=== PATIENT | female | born 1955 | race Hispanic/Latino ===

== ENCOUNTER 2023-06-24 06:03 | Day surgery (SDC) | payer OTHER ==
[2023-06-22 13:08] VITALS: BP 159/74; PULSE 80; RESP 16
[2023-06-22 13:14] LABS: BASOPHILS # (AUTO) 0.04 K/uL (0.00-0.20); BASOPHILS % (AUTO) 0.6 % (0.0-5.0); EOSINOPHILS % (AUTO) 1.6 % (0.0-8.0); HEMATOCRIT 37.5 % (36-48); IMMATURE GRANULOCYTE ABSOLUTE 0.04 K/uL (0-1); LYMPHOCYTES # (AUTO) 1.5 K/uL (1.0-4.8); LYMPHOCYTES % (AUTO) 23.1 % (21.0-51.0); MEAN CORPUSCULAR HEMOGLOBIN 28.7 pg (27.0-33.0); MEAN CORPUSCULAR HGB CONC 34.1 g/dL (32.0-36.0); MEAN CORPUSCULAR VOLUME 84.1 fL (79-99); MONOCYTES # (AUTO) 0.4 K/uL (0.1-1.0); MONOCYTES % (AUTO) 6.4 % (3.0-13.0); NEUTROPHILS # (AUTO) 4.3 K/uL (1.8-7.7); NEUTROPHILS % (AUTO) 67.7 % (40.0-77.0); PLATELET COUNT (AUTO) 346 K/uL (130-400); RED BLOOD CELL COUNT(AUTO) 4.46 MIL/uL (4.00-5.50); RED CELL DISTRIBUTION WIDTH 12.3 % (11.0-15.5); WHITE BLOOD COUNT (AUTO) 6.4 K/uL (4.8-10.8)
[2023-06-22 13:25] LABS: CREATININE 0.7 mg/dL (0.5-1.5); INR < 0.93 (0.85-1.15); POTASSIUM 5.4 mmol/L (3.5-5.1)
[2023-06-22 13:27] LABS: PARTIAL THROMBOPLASTIN TIME 24.6 SEC (26.3-35.5)
[2023-06-24] VITALS (18 sets, daily range): BP systolic 118–160; BP diastolic 39–72; PULSE 66–78; RESP 11–18
[~2023-06-24] VITALS: Ht 158.8 cm; Wt 67.6 kg
[~2023-06-24 06:03] MED LIST: AEC81 PO; FLUT16H NASAL; HYDR-3421 PO; LORA10TA7 PO; LOSA25TA41 PO; METF-444 PO; MONT-39 PO
[2023-06-24] MEDS ORDERED: 0.9%NACL 1000ML 1,000 ML IV ONE (06:28)
[2023-06-24 06:50] LABS: CREATININE 0.7 mg/dL (0.5-1.5); POTASSIUM 4.1 mmol/L (3.5-5.1)
[2023-06-24] MEDS ORDERED: SUCCINYLCHOLINE CHLORIDE 20 MG/ML 10 ML VIAL ONE (07:54)
[2023-06-24] MEDS ORDERED: PROPOFOL 10 MG/ML 20ML VIAL IV ONE (07:55)
[2023-06-24] MEDS ORDERED: ROCURONIUM 10MG/1ML SYR 10 MG/ML ML ONE ×2 (07:55→08:25)
[2023-06-24] MEDS ORDERED: LIDOCAINE PF 100MG/5ML (2%) SYRINGE 5ML ONE (07:55)
[2023-06-24] MEDS ORDERED: FENTANYL CITRATE PF 50 MCG/1 ML 2ML VIAL ONE ×2 (07:57→08:48)
[2023-06-24] MEDS ORDERED: MIDAZOLAM HCL 1 MG/ML 2ML VIAL ONE (07:57)
[2023-06-24] MEDS ORDERED: DEXAMETHASONE SOD PHOSPHATE 10MG/ML 1ML VIAL ONE (09:08)
[2023-06-24] MEDS ORDERED: ONDANSETRON 4MG INJ ONE ×3 (09:09→09:52)
[2023-06-24] MEDS ORDERED: GLYCOPYRROLATE 1 MG/5 ML SYRINGE ONE (09:10)
[2023-06-24] MEDS ORDERED: NEOSTIGMINE 5MG/5ML SYR IV ONE (09:10)
[2023-06-24] MEDS ORDERED: MEPERIDINE-PF 25 MG/ML SYG ONE ×2 (09:32→09:43)
[2023-06-24] MEDS ORDERED: METOCLOPRAMIDE 10 MG/2 ML VIAL ONE (09:52)
== END 2023-06-24 10:50 | disposition home or self-care (01) ==
LOC: DAH 06:03
PROVIDERS: ATTEND Otolaryngology Plastic Surgery within the Head & Neck
DX: C09.9 Malignant neoplasm of tonsil, unspecified (principal); I10 Essential (primary) hypertension; E66.9 Obesity, unspecified; Z79.899 Other long term (current) drug therapy; Z68.26 Body mass index [BMI] 26.0-26.9, adult; Z98.890 Other specified postprocedural states; Z79.01 Long term (current) use of anticoagulants
CPT/HCPCS: 80048 ×2; 85025; 85610; 85730; 36415 ×2; 93005; 42826; 82948 ×2; 88304; 88342; 88341; A6260; A4663; J3010 ×2; J3490; J1100; J2710; J0330; J7030; J2001; J2250; J2704; J2405 ×3; J2175 ×2; J2765; A4649; A4930; A4215; A4223; A4222; A4221